=== PATIENT | female | born 1970 | race Caucasian/White ===

== ENCOUNTER 2022-08-28 11:20 | Emergency (ER) | payer MEDICARE, MEDICAID, SELFPAY ==
[2022-08-28 11:26] VITALS: BP 142/81; PULSE 80; RESP 18; TEMP 36.9; O2SAT 97; BMI 38.7
--- NOTE | 2022-08-28 13:58 | PC.NURSE ---
Per provider Ruiz she reports she would like me to hold off on IV and labs until she assesses the patient.
--- NOTE | 2022-08-28 14:01 | ED_ITS ---
HPI - Back Pain/Injury <Cyndi Melchor PA-C - Last Filed: 08/28/22 19:43> General Chief Complaint: Back Pain/Injury Stated Complaint: back pain T-7 Time Seen by Provider: 08/28/22 13:33 Source: patient History of Present Illness HPI Narrative: 52-year-old female with past medical history kidney transplant presents to the ED with 1 week of right-sided mid back/flank pain. Patient states that the kidney transplant was in 2018, when she had her bilateral kidneys removed, a new kidney transplanted into her right abdomen. Patient states that she started experiencing some right-sided flank/mid back pain 1 week ago, denies trauma. Patient states that the pain is aggravated with movement, alleviated when she finds a good position to rest in. Patient was seen in a walk-in clinic 2 days ago, was given oxycodone 5 mg which her pharmacist refused to fill due to her pain contract that she has for her chronic back pain. Patient denies fever, chills, chest pain, shortness of breath, nausea, vomiting, abdominal pain, dysuria, lightheadedness, dizziness, syncope. Patient states that she is not concerned about this pain being related to her kidney since her kidney is now in front in the abdomen. Patient's saw her program director/traffic director 2 weeks ago, states that her labs and checkup were normal. Related Data Home Medications Medication Instructions Recorded Confirmed amlodipine 5 mg tablet 5 mg PO DAILY 08/28/22 08/28/22 atenolol 25 mg tablet 25 mg PO BID 08/28/22 08/28/22 buprenorphine 20 mcg/hour weekly 1 patch topical QWEEK 08/28/22 08/28/22 transdermal patch citalopram 40 mg tablet 40 mg PO DAILY 08/28/22 08/28/22 cyclobenzaprine 10 mg tablet 10 mg PO TID PRN muscle spasms 08/28/22 08/28/22 gabapentin 300 mg capsule 300 mg PO BID 08/28/22 08/28/22 montelukast 10 mg tablet 10 mg PO DAILY 08/28/22 08/28/22 mycophenolate sodium 180 mg See Rx Instructions .Route .COMPLEX 08/28/22 08/28/22 tablet,delayed release nitrofurantoin 100 mg PO DAILY 08/28/22 08/28/22 monohydrate/macrocrystals 100 mg capsule omeprazole 20 mg capsule,delayed 40 mg PO DAILY 08/28/22 08/28/22 release oxycodone 5 mg tablet 5 mg PO Q6H PRN Pain (Scale Score 08/28/22 08/28/22 7-10) prednisone 5 mg tablet 5 mg PO DAILY 08/28/22 08/28/22 tacrolimus 0.5 mg capsule, 0.5 mg PO BID 08/28/22 08/28/22 immediate-release Allergies Allergy/AdvReac Type Severity Reaction Status Date / Time No Known Drug Allergies Allergy Verified 08/28/22 11:26 Review of Systems <Cyndi Melchor PA-C - Last Filed: 08/28/22 19:43> Review of Systems ROS Unobtainable: All systems reviewed & are unremarkable except as noted in HPI and below Constitutional Constitutional: Denies chills, Denies fatigue, Denies fever(s), Denies frequent falls, Denies lethargy and Denies weakness Eyes Eyes: Denies change in vision, Denies eye discharge, Denies irritation and Denies loss of vision ENT Ears, Nose, Mouth, and Throat: Denies change in voice, Denies dizziness, Denies neck pain, Denies sore throat and Denies throat swelling Cardiovascular Cardiovascular: Denies chest pain, Denies irregular heart rhythm, Denies lightheadedness, Denies palpitations, Denies dyspnea, Denies dyspnea on exertion and Denies orthopnea Respiratory Respiratory: Denies cough, Denies dyspnea, Denies dyspnea on exertion and Denies wheezing Gastrointestinal Gastrointestinal: Denies abdominal pain, Denies change in bowel habits, Denies diarrhea, Denies nausea and Denies vomiting Genitourinary Genitourinary: Denies hematuria, Denies flank pain, Denies urinary incontinence and Denies urinary urgency Musculoskeletal Musculoskeletal: Reports back pain, Denies muscle weakness, Denies neck pain, Denies numbness and Denies tingling Integumentary/Breasts Skin/Breast: Denies pruritus, Denies erythema, Denies rash and Denies wounds Neurologic Neurologic: Denies behavioral changes, Denies confusion, Denies dizziness, Denies frequent falls, Denies loss of vision, Denies numbness, Denies tingling and Denies weakness Psychiatric Psychiatric: Denies anxiety, Denies behavioral changes, Denies confusion, Denies depression, Denies homicidal ideation and Denies suicidal ideation Endocrine Endocrine: Denies fatigue, Denies flushing and Denies palpitations Hematologic/Lymphatic Hematologic/Lymphatic: Denies easy bruising Allergic/Immunologic Allergic/Immunologic: Denies urticaria, Denies throat swelling and Denies wheezing Patient History <Cyndi Melchor PA-C - Last Filed: 08/28/22 19:43> Medical History History of frequent urinary tract infections Surgical History Kidney replaced by transplant Social History Smoking Status: Current every day smoker Smoking Status: Current every day smoker alcohol intake frequency: holidays/special occasions only Substance Use Type: does not use Exam <Cyndi Melchor PA-C - Last Filed: 08/28/22 19:43> Narrative Exam Narrative: Const General:?cooperative, healthy appearing and comfortable [facility] Head:?normal to inspection Ears:?hearing grossly normal bilaterally Nose:?external nose normal Face and sinus:?normal facial exam and sinuses nontender Mouth:?oral mucosae normal Throat:?posterior oropharynx normal Eyes General:?appearance normal, both eyes and all related structures Neck Neck:?normal visual inspection and no lymphadenopathy noted Resp Effort & Inspection:?normal respiratory effort Auscultation:?clear to auscultation bilaterally Cardio Rate:?regular rate Rhythm:?regular rhythm GI Abdomen is soft, nondistended, nontender to palpation. There is no CVA tenderness. Musculoskeletal No midline tenderness to palpation. No paraspinal tenderness to palpation. Neuro General:?patient alert, patient awake and patient oriented x3 Initial Vital Signs Initial Vital Signs: Vital Signs Temperature 98.5 F 08/28/22 11:26 Pulse Rate 80 08/28/22 11:26 Respiratory Rate 18 08/28/22 11:26 Blood Pressure 142/81 H 08/28/22 11:26 Pulse Oximetry 97 08/28/22 11:26 Oxygen Delivery Method 08/28/22 11:26 <Kobe Lora DO - Last Filed: 08/28/22 19:51> Initial Vital Signs Initial Vital Signs: Vital Signs Temperature 98.5 F 08/28/22 11:26 Pulse Rate 80 02/27/23 11:26 Respiratory Rate 18 08/28/22 11:26 Blood Pressure 142/81 H 08/28/22 11:26 Pulse Oximetry 97 08/28/22 11:26 Oxygen Delivery Method 08/28/22 11:26 Course <Cyndi Melchor PA-C - Last Filed: 08/28/22 19:43> Orders Ordered: Discontinued Medications Sodium Chloride (Normal Saline 0.9%) 1,000 mls @ 1,000 mls/hr IV BOLUS ONE Stop: 08/28/22 13:51 Last Admin: 08/28/22 14:01 Dose: Not Given Documented By: JONES Morphine Sulfate (Morphine 4 Mg/Ml Inj) 4 mg IV NOW ONE Stop: 08/28/22 16:09 Last Admin: 08/28/22 16:42 Dose: Not Given Documented By: MAYANK Morphine Sulfate (Morphine 4 Mg/Ml Inj) 4 mg IM NOW ONE Stop: 08/28/22 16:33 Last Admin: 08/28/22 16:54 Dose: Not Given Documented By: MAYANK Ondansetron HCl (Ondansetron 4 Mg/2 Ml Inj) 4 mg IV NOW PRN PRN Reason: Nausea And Vomiting Oxycodone/Acetaminophen (Oxycodone/Acetaminophen 5/325 Tablet) 1 tab PO NOW ONE Stop: 08/28/22 14:00 Last Admin: 08/28/22 14:06 Dose: 1 tab Documented By: SAVI Vital Signs Vital signs: Vital Signs - 8 hr 08/28/22 16:54 Pulse Rate 62 Respiratory Rate 16 Blood Pressure 125/69 Pulse Oximetry 99 Oxygen Delivery Method Room Air <Kobe Lora DO - Last Filed: 08/28/22 19:51> Orders Ordered: Discontinued Medications Sodium Chloride (Normal Saline 0.9%) 1,000 mls @ 1,000 mls/hr IV BOLUS ONE Stop: 08/28/22 13:51 Last Admin: 08/28/22 14:01 Dose: Not Given Documented By: JONES Morphine Sulfate (Morphine 4 Mg/Ml Inj) 4 mg IV NOW ONE Stop: 08/28/22 16:09 Last Admin: 08/28/22 16:42 Dose: Not Given Documented By: MAYANK Morphine Sulfate (Morphine 4 Mg/Ml Inj) 4 mg IM NOW ONE Stop: 08/28/22 16:33 Last Admin: 08/28/22 16:54 Dose: Not Given Documented By: MAYANK Ondansetron HCl (Ondansetron 4 Mg/2 Ml Inj) 4 mg IV NOW PRN PRN Reason: Nausea And Vomiting Oxycodone/Acetaminophen (Oxycodone/Acetaminophen 5/325 Tablet) 1 tab PO NOW ONE Stop: 08/28/22 14:00 Last Admin: 08/28/22 14:06 Dose: 1 tab Documented By: SAVI Vital Signs Vital signs: Vital Signs - 8 hr 08/28/22 16:54 Pulse Rate 62 Respiratory Rate 16 Blood Pressure 125/69 Pulse Oximetry 99 Oxygen Delivery Method Room Air MDM - Back Pain/Injury <Cyndi Melchor PA-C - Last Filed: 08/28/22 19:43> Lab Data Labs: Urine Dip Bedside Urine Glucose Negative Bedside Urine Bilirubin - Negative Bedside Urine Ketone - Negative Urine Specific [place] 1.015 Bedside Urine Occult Blood - Negative Bedside Urine pH 6.0 Bedside Urine Protein - Negative Bedside Urine Urobilinogen - Negative Bedside Urine Nitrite - Negative Bedside Urine Leukocytes - Negative Esterase MDM Narrative Medical decision making narrative: 52-year-old female with past medical history kidney transplant presents to the ED with 1 week of right-sided mid back/flank pain. Concern for UTI versus pyelo versus musculoskeletal sprain/strain versus other. UA negative for UTI. History and physical exam more consistent with a musculoskeletal sprain/strain. Abdomen is benign. Patient given Percocet for pain. Likely discharge home with ED return precautions. CT ultrasound shows right-sided complex ovarian cyst, likely hemorrhagic. CT abdomen and pelvis shows the right-sided ovarian cyst as well. Appendix was normal. No inflammatory changes seen. There is no free fluid. Patient's symptoms likely due to the ovarian cyst. Discussed findings with patient, she agrees to follow-up with OBGYN Dr. Duffy as soon as possible. ED return precautions were discussed with patient and she verbalized understanding. Medical records reviewed: Yes <Kobe Lora DO - Last Filed: 08/28/22 19:51> Lab Data Labs: Urine Dip Bedside Urine Glucose Negative Bedside Urine Bilirubin - Negative Bedside Urine Ketone - Negative Urine Specific [place] 1.015 Bedside Urine Occult Blood - Negative Bedside Urine pH 6.0 Bedside Urine Protein - Negative Bedside Urine Urobilinogen - Negative Bedside Urine Nitrite - Negative Bedside Urine Leukocytes - Negative Esterase Discharge Plan Departure Patient Disposition: Home Clinical Impression: Back pain Instructions: DI for Muscle Strain Activity Restrictions/Additional Instructions: You were evaluated in the ED today for back pain. Your symptoms are likely due to a musculoskeletal sprain/strain, you were treated with Percocet and morphine. Please follow-up with your pain management doctor for further management of the pain. Return to the ED if you experience worsening symptoms, fever, chills, persistent vomiting. Prescriptions: No Action cyclobenzaprine 10 mg tablet 10 mg PO TID PRN (Reason: muscle spasms) Label Comments: Take 1 tablet by mouth three times a day as needed for muscle spasm citalopram 40 mg tablet 40 mg PO DAILY Label Comments: TAKE ONE TABLET BY MOUTH DAILY AT 9 AM PATIENT NEEDS APPOINTMENT BEFORE NEXT REFILL prednisone 5 mg tablet 5 mg PO DAILY atenolol 25 mg tablet 25 mg PO BID amlodipine 5 mg tablet 5 mg PO DAILY gabapentin 300 mg capsule 300 mg PO BID omeprazole 20 mg capsule,delayed release(DR/EC) 40 mg PO DAILY montelukast 10 mg tablet 10 mg PO DAILY tacrolimus 0.5 mg capsule 0.5 mg PO BID oxycodone 5 mg tablet 5 mg PO Q6H PRN (Reason: Pain (Scale Score 7-10)) mycophenolate sodium 180 mg tablet,delayed release (DR/EC) See Rx Instructions .ROUTE .COMPLEX Rx Instructions: TAKE TWO TABLETS BY MOUTH DAILY AT 9 AM and TAKE ONE TABLET BY MOUTH DAILY AT 5 PM nitrofurantoin monohyd/m-cryst 100 mg capsule 100 mg PO DAILY buprenorphine 20 mcg/hour patch weekly 1 patch topical QWEEK Label Comments: apply one patch to clean dry skin every 7 days for 28 days Referrals: Braden Rascon MD [Primary Care Provider] - Stand Alone Forms: Patient Portal/API <Kobe Lora DO - Last Filed: 08/28/22 19:51> Cosign ED Attending Cosignature Attestation: Dr Lora Co-Sign Statement: I was available for consultation during this patient's emergency department visit. This chart is signed by myself for administrative purposes only. I did not have direct contact with this patient during this visit. They were seen independently by the APC.
[2022-08-28] MEDS: OXYCODONE/ACETAMINOPHEN 5/325 TABLET 1 TAB PO (14:06)
--- NOTE | 2022-08-28 16:19 | PC.NURSE ---
patient check, pt. wanted to know what the plan was as far as prescription meds that are possibly going to be given, told the pt. i could ask or pass along the question to the nurse. daughter of the pt. stated we don't want just to keep pumpin her full of pain meds, we want to know what the problem is. I told the pt. and daughter, I wasn't sure, but would ask to find out.
[2022-08-28 16:54] VITALS: BP 125/69; PULSE 62; RESP 16; O2SAT 99
== END 2022-08-28 16:55 | disposition home or self-care (01) ==
PROVIDERS: Emergency Provider Student in an Organized Health Care Education/Training Program; PCP Internal Medicine
DX: M54.6 Pain in thoracic spine (principal)
CPT/HCPCS: 81003; 99283